=== PATIENT | male | born 1985 | race African-American/Black ===

== ENCOUNTER 2024-06-18 10:18 | Emergency (ER) | payer OTHER ==
[~2024-06-18] VITALS: Ht 190.5 cm; Wt 94.8 kg
[~2024-06-18 10:18] MED LIST: INSU100C6 SQ; INSU100I28 SQ; LISI40TA13 PO; TAMS-54 PO
[2024-06-18 10:21] VITALS: O2SAT 100
[2024-06-18 11:00] LABS: EOSINOPHILS % 1.1 % (0.0-5.0); HEMOGLOBIN. 9.8 g/dL (14.0-18.0); MEAN PLATELET VOLUME 10.1 fl (7.4-10.4)
[2024-06-18 11:11] LABS: PROTHROMBIN TIME 10.7 sec (9.6-11.0)
[2024-06-18 11:13] LABS: BASOPHILS % 1.6 % (0.0-2.0); HEMATOCRIT. 29.5 % (42.0-52.0); LYMPHOCYTES % 18.8 % (20.0-50.0); MEAN CORPUSCULAR HEMOGLOBIN 27.5 pg (28.0-32.0); MEAN CORPUSCULAR HGB CONC 33.2 g/dL (31.0-37.0); MEAN CORPUSCULAR VOLUME 82.7 fL (80.0-94.0); MONOCYTES % 3.6 % (2.0-8.0); NEUTROPHILS % 74.9 % (40.0-76.0); PLATELET 260 x1000/uL (130-400); RED BLOOD CELL COUNT 3.57 mill/uL (4.7-6.1); RED CELL DISTRIBUTION WIDTH 14.4 % (11.6-14.6); WHITE BLOOD COUNT 7.9 x1000/uL (4.5-11.0)
[2024-06-18] MEDS: LABETALOL 5MG/ML 4ML INJ IV ONE (11:13)
[2024-06-18 11:20] LABS: CHLORIDE 101 mEq/L (98-107); POTASSIUM 3.8 mEq/L (3.5-5.1); SODIUM 137 mEq/L (136-145)
[2024-06-18 11:21] LABS: CALCIUM 9.6 mg/dL (8.7-10.4); CARBON DIOXIDE 26 mEq/L (21-32)
[2024-06-18 11:26] LABS: DIFFERENTIAL COMMENT 1; ETHANOL BLOOD < 10 mg/dL (<10); GLUCOSE 133 mg/dL (70-105); TROPONIN I HIGH SENSITIVITY 42 ng/L (3.0-53); UREA NITROGEN BLOOD 55 mg/dL (9-23)
[2024-06-18 11:27] LABS: ALANINE AMINOTRANSFERASE 12 IU/L (10-49)
[2024-06-18 11:28] LABS: ALBUMIN 4.1 g/dL (3.2-4.8); ASPARTATE AMINOTRANSFERASE 18 IU/L (<34); BILIRUBIN TOTAL 0.4 mg/dL (0.1-1.0); PROTEIN TOTAL 7.5 g/dL (6.0-8.3)
[2024-06-18 11:40] LABS: CREATININE 5.6 mg/dL (0.6-1.3)
[2024-06-18] MEDS: LABETALOL 5MG/ML 4ML INJ IV NR (13:32)
[2024-06-18 15:45] VITALS: BP 205/110; PULSE 81; RESP 13; TEMP 37; O2SAT 100
[2024-06-18 16:34] LABS: *AMPHETAMINES SCREEN URINE NEGATIVE (NEGATIVE); *BARBITURATES SCREEN URINE NEGATIVE (NEGATIVE); *BENZODIAZEPINES SCREEN URINE NEGATIVE (NEGATIVE); *COCAINE SCREEN URINE NEGATIVE (NEGATIVE); CANNABINOID URINE SCREEN NEGATIVE (NEGATIVE); METHADONE URINE SCREEN NEGATIVE (NEGATIVE); OPIATES URINE SCREEN NEGATIVE (NEGATIVE); PHENCYCLIDINE URINE SCREEN NEGATIVE (NEGATIVE)
[2024-06-18 16:35] LABS: ECSTASY MDMA SCREEN URINE NEGATIVE (NEGATIVE)
[2024-06-18 16:40] LABS: CLARITY URINE CLEAR (CLEAR); COLOR URINE YELLOW (YELLOW); GLUCOSE URINE 2+ (NEGATIVE); KETONES URINE NEGATIVE (NEGATIVE); LEUKOCYTE ESTERASE URINE NEGATIVE (NEGATIVE); NITRITE URINE NEGATIVE (NEGATIVE); OCCULT BLOOD URINE 1+ (NEGATIVE); PH URINE 6.5 (4.5-8.0); PROTEIN URINE 3+ (NEGATIVE); SPECIFIC GRAVITY URINE 1.012 (1.005-1.030); UROBILINOGEN URINE 0.2 E.U./dL (0.2-1.0)
[2024-06-18 16:58] LABS: BACTERIA URINE TRACE; SQUAMOUS EPITHELIAL CELL URINE RARE /lpf (RARE/1+); WBC URINE 0-2 /hpf (0-2)
== END 2024-06-18 16:24 | disposition left against medical advice (07) ==
LOC: ER 10:18 → EDBEDREQ 10:33 → EDBEDREQTM 14:11 → EDBEDREQSVC 14:11 → ER 16:24
DX: N17.9 Acute kidney failure, unspecified (principal); I10 Essential (primary) hypertension; E11.9 Type 2 diabetes mellitus without complications; Z79.4 Long term (current) use of insulin
CPT/HCPCS: 80053; 80305; 81003; 80320; 83690; 85025; 85610; 84484; 36415; 71045; 74176; 76770; 93005; 96374; 96376; 99291; J3490; Z7610 ×2; A4606; G0480